=== PATIENT | male | born 1970 | race Two or more races ===

== ENCOUNTER 2019-01-07 16:55 | Inpatient (IN) | payer OTHER ==
[2019-01-07 17:41] VITALS: BMI 28.8
--- NOTE | 2019-01-07 19:07 | HP ---
CIWA Score Nausea/Vomitin Muscle Tremors: 2 Anxiety: 2 Agitation: 2 Paroxysmal Sweats: 1-Minimal Palms Moist Orientation: 0-Oriented Tacttile Disturbances: 1-Very Mild Itch/Numbness Auditory Disturbances: 1-Very Mild Visual Disturbances: 0-None Headache: 2-Mild CIWA-Ar Total Score: 13 - Admission Criteria OASAS Guidelines: Admission for Medically Managed Detox: Requires at least one of the followin. CIWA greater than 12 2. Seizures within the past 24 hours 3. Delirium tremens within the past 24 hours 4. Hallucinations within the past 24 hours 5. Acute intervention needed for co occurring medical disorder 6. Acute intervention needed for co occurring psychiatric disorder 7. Severe withdrawal that cannot be handled at a lower level of care (continued vomiting, continued diarrhea, abnormal vital signs) requiring intravenous medication and/or fluids 8. Admission ROS S - HPI Chief Complaint: i need help to stop drinking alcohol Allergies/Adverse Reactions: Allergies Allergy/AdvReac Type Severity Reaction Status Date / Time No Known Allergies Allergy Verified 01/07/19 17:30 History of Present Illness: this 48 years old male with alcohol dependence,seeking detox,withdrawal symptom, seizure withdrawal in 2018 seen in [facility] seen in [facility] this morning,for chest pain,receiving librium this morning history of hypertension and hypercholesterolemia,no medications for 2 years no significant period of sobriety plan for out patient program after detox Exam Limitations: No Limitations - Ebola screening Have you traveled outside of the country in the last 21 days: No (N) Have you had contact with anyone from an Ebola affected area: No Do you have a fever: No - Review of Systems Constitutional: Loss of Appetite, Malaise, Night Sweats, Changes in sleep, Weakness EENT: reports: Tearing, Nose Congestion Respiratory: reports: No Symptoms reported Cardiac: reports: No Symptoms Reported GI: reports: Diarrhea, Nausea, Poor Appetite, Abdominal cramping : reports: No Symptoms Reported Integumentary: reports: Dryness Neuro: reports: Headache, Tremors Endocrine: reports: No Symptoms Reported Hematology: reports: No Symptoms Reported Psychiatric: reports: No Sypmtoms Reported, Judgement Intact, Mood/Affect Appropiate, Orientated x3 Other Systems: Reviewed and Negative Patient History - Patient Medical History Hx Anemia: No Hx Asthma: No Hx Chronic Obstructive Pulmonary Disease (COPD): No Hx Cancer: No Hx Cardiac Disorders: No Hx Congestive Heart Failure: No Hx Hypertension: Yes (no med) Hx Hypercholesterolemia: Yes (no med) Hx Pacemaker: No HX Cerebrovascular Accident: No Hx Seizures: Yes (last 2017 withdrawal seizure) Hx Dementia: No Hx Diabetes: No Hx Gastrointestinal Disorders: No Hx Liver Disease: No Hx Genitourinary Disorders: No Hx Sexually Transmitted Disorders: No Hx Renal Disease (ESRD): No Hx Thyroid Disease: No Hx Human Immunodeficiency Virus (HIV): No (last 12/20 negative) Hx Hepatitis C: No Hx Depression: Yes (no med) Hx Suicide Attempt: No Hx Bipolar Disorder: No Hx Schizophrenia: No Other Medical History: no suicidal,no homicidal - Patient Surgical History Past Surgical History: No Hx Neurologic Surgery: No Hx Cataract Extraction: No Hx Cardiac Surgery: No Hx Lung Surgery: No Hx Breast Surgery: No Hx Breast Biopsy: No Hx Abdominal Surgery: No Hx Appendectomy: No Hx Cholecystectomy: No Hx Genitourinary Surgery: No Hx Section: No Hx Orthopedic Surgery: No Anesthesia Reaction: No - PPD History Previous Implant?: Yes Documented Results: Negative w/o proof Implanted On Prior [facility] Admission?: No PPD to be Administered?: No - Smoking Cessation Smoking history: Never smoked Have you smoked in the past 12 months: No Hx Chewing Tobacco Use: No Initiated information on smoking cessation: No - Substance & Tx. History Hx Alcohol Use: Yes Hx Substance Use: No Substance Use Type: Alcohol Hx Substance Use Treatment: No - Substances abused Alcohol Substance route: Oral Frequency: Daily Amount used: 1 to 2 pints of vodka. Age of first use: 22 Date of last use: 01/06/19 Family Disease History - Family Disease History Family History: Denies Admission Physical Exam S - Vital Signs Vital Signs: Vital Signs - 24 hr 01/07/19 17:33 Temperature 97.4 F L Pulse Rate 77 Respiratory 18 Rate Blood Pressure 136/98 - Physical General Appearance: Yes: Moderate Distress, Tremorous, Irritable, Sweating, Anxious HEENTM: Yes: Normocephalic, DAVIDA, Pharynx Normal Respiratory: Yes: Within Normal Limits, Lungs Clear, Normal Breath Sounds, No Respiratory Distress Neck: Yes: Within Normal Limits, Supple, Trachea in good position Breast: Yes: Within Normal Limits Cardiology: Yes: Within Normal Limits, Regular Rhythm, Regular Rate, S1, S2 Abdominal: Yes: Within Normal Limits, Normal Bowel Sounds, Non Tender, Soft Genitourinary: Yes: Within Normal Limits Back: Yes: Muscle Spasm Musculoskeletal: Yes: Back pain, Muscle Pain Extremities: Yes: Within Normal Limits, Normal Range of Motion, Tremors Neurological: Yes: Within Normal Limits, social media executive II-XII NML intact, Alert, Motor Strength 5/5 Integumentary: Yes: Dry Lymphatic: Yes: Within Normal Limits - Diagnostic (1) Alcohol dependence with uncomplicated withdrawal Current Visit: Yes Status: Acute (2) Alcohol related seizure Current Visit: Yes Status: Acute (3) Syncope Current Visit: Yes Status: Acute (4) Hypertension Current Visit: Yes Status: Acute (5) Hypercholesterolemia Current Visit: Yes Status: Acute Cleared for Admission S - Detox or Rehab [facility] Level of Care: Medically Managed Detox Regimen/Protocol: Librium Breathalyzer - Breathalyzer Breathalyzer: 0 Urine Drug Screen - Test Device Lot number: [id number] Expiration date: 10/31/20 - Control Is test valid?: Yes - Results Drug screen NEGATIVE: No Urine drug screen results: BZO-Benzodiazepines Inpatient Rehab Admission - Rehab Decision to Admit Inpatient rehab admission?: No
[2019-01-07] MEDS ORDERED: MAG HYDROX/AL HYDROX/SIMETH 30 ML UNIT-DOSE CUP PO PRN (19:17)
[2019-01-07] MEDS ORDERED: MENTHOL/PHENOL 1 EACH UD MM PRN (19:17)
[2019-01-07] MEDS ORDERED: IBUPROFEN 400 MG TABLET (FP) PO PRN (19:17)
[2019-01-07] MEDS ORDERED: METHOCARBAMOL 500 MG TABLET PO PRN (19:17)
[2019-01-07] MEDS ORDERED: MAGNESIUM HYDROX 2400MG/30ML ORAL SUSPENSION 30 ML CUP PO PRN (19:17)
[2019-01-07] MEDS ORDERED: MAGNESIUM CITRATE 300 ML BOTTLE PO PRN (19:17)
[2019-01-07] MEDS ORDERED: BISMUTH SUBSALICYLATE 524 MG/30 ML UD PO PRN (19:17)
[2019-01-07] MEDS ORDERED: ACETAMINOPHEN 325 MG TABLET (FP) PO PRN ×2 (19:17)
[2019-01-07] MEDS ORDERED: hydrOXYzine PAMOATE 25 MG CAPSULE (FP) PO PRN (19:17)
[2019-01-07] MEDS ORDERED: chlordiazePOXIDE HCL 25 MG CAPSULE PO PRN (19:17)
[2019-01-07] MEDS: chlordiazePOXIDE HCL 25 MG CAPSULE PO SCH (22:05)
[2019-01-07] MEDS: THIAMINE HCL 100 MG TABLET (FP) PO SCH (22:05)
[2019-01-08] MEDS: chlordiazePOXIDE HCL 25 MG CAPSULE PO SCH ×4 (05:32→22:24)
[2019-01-08 10:00] LABS: ALBUMIN 3.8 g/dl (3.4-5.0); BILIRUBIN,TOTAL 0.3 mg/dL (0.2-1); BLOOD UREA NITROGEN 13.3 mg/dL (7-18); CALCIUM 8.7 mg/dL (8.5-10.1); CREATININE 0.8 mg/dL (0.55-1.3); TOT PROT 7.2 g/dl (6.4-8.2)
--- NOTE | 2019-01-08 10:05 | PN ---
[facility] CIWA - CIWA Score Nausea/Vomitin-Mild Nausea/No Vomiting Muscle Tremors: 3 Anxiety: 2 Agitation: 3 Paroxysmal Sweats: 1-Minimal Palms Moist Orientation: 1-Uncertain about Date Tacttile Disturbances: 1-Very Mild Itch/Numbness Auditory Disturbances: 0-None Visual Disturbances: 0-None Headache: 0-None Present CIWA-Ar Total Score: 12 BHS Progress Note (SOAP) Subjective: first alcohol detox at [facility] doing well with librium detox protocol tremor restlessness mild headaches Objective: 01/08/19 10:06 Vital Signs Temperature 96.9 F L 01/08/19 09:07 Pulse Rate 86 01/08/19 09:07 Respiratory Rate 18 01/08/19 09:07 Blood Pressure 132/90 01/08/19 09:07 O2 Sat by Pulse Oximetry (%) Laboratory Last Values Sodium 137 mmol/L (136-145) 01/08/19 08:00 Potassium 4.0 mmol/L (3.5-5.1) 01/08/19 08:00 Chloride 104 mmol/L (98-107) 01/08/19 08:00 Carbon Dioxide 27 mmol/L (21-32) 01/08/19 08:00 Anion Gap 6 MMOL/L (8-16) L 01/08/19 08:00 BUN 13.3 mg/dL (7-18) 01/08/19 08:00 Creatinine 0.8 mg/dL (0.55-1.3) 01/08/19 08:00 Est GFR (CKD-EPI)AfAm 124.16 01/08/19 08:00 Est GFR (CKD-EPI)NonAf 107.13 01/08/19 08:00 Random Glucose 105 mg/dL (74-106) 01/08/19 08:00 Calcium 8.7 mg/dL (8.5-10.1) 01/08/19 08:00 Total Bilirubin 0.3 mg/dL (0.2-1) 01/08/19 08:00 AST 23 U/L (15-37) 01/08/19 08:00 ALT 34 U/L (13-61) 01/08/19 08:00 Alkaline Phosphatase 60 U/L (45-117) 01/08/19 08:00 Total Protein 7.2 g/dl (6.4-8.2) 01/08/19 08:00 Albumin 3.8 g/dl (3.4-5.0) 01/08/19 08:00 lab noted history of hypertension 01/08/19 10:07 treated with amlopidine 5 mg po daily 01/08/19 10:08 hold while on librium detox regimen Assessment: 01/08/19 10:09 alcohol withdrawal sx Plan: continue alcohol detox
[2019-01-08 10:08] LABS: HEMATOCRIT 38.8 % (35.4-49); HEMOGLOBIN 13.2 GM/dL (11.7-16.9); MCH 32.3 pg (25.7-33.7); MCHC 34.1 g/dl (32.0-35.9); MEAN CELL VOLUME 94.7 fl (80-96); MEAN PLT VOLUME 9.1 fl (7.5-11.1); PLATELET COUNT 160 K/MM3 (134-434); RBC 4.09 M/mm3 (4.00-5.60); RDW 12.7 % (11.9-15.9); WHITE BLOOD COUNT 6.5 K/mm3 (4.0-10.0)
[2019-01-08] MEDS: PRENATAL VITAMINS W/ FOLIC ACID TABLET (FP) PO SCH (10:16)
--- NOTE | 2019-01-08 11:46 | EKG ---
Test Reason : Blood Pressure : / mmHG Vent. Rate : 061 BPM Atrial Rate : 061 BPM P-R Int : 156 ms QRS Dur : 102 ms QT Int : 416 ms P-R-T Axes : 024 000 010 degrees QTc Int : 418 ms NORMAL SINUS RHYTHM VOLTAGE CRITERIA FOR LEFT VENTRICULAR HYPERTROPHY NONSPECIFIC T WAVE ABNORMALITY ABNORMAL ECG NO PREVIOUS ECGS AVAILABLE Confirmed by REINALDO MCGINNIS MD ([id number]) on 01/08/2019 11:45:43 AM Referred By: Emely Hooks Confirmed By:REINALDO MCGINNIS MD
[2019-01-08] MEDS: LIDOCAINE 5% TOPICAL PATCH TP SCH (14:26)
[2019-01-08] MEDS: MELATONIN 5 MG TABLETS PO PRN (22:24)
[2019-01-08] MEDS: LIDOCAINE PATCH REMOVAL MC SCH (22:24)
[2019-01-08] MEDS: THIAMINE HCL 100 MG TABLET (FP) PO SCH (22:24)
[2019-01-09] MEDS: chlordiazePOXIDE HCL 25 MG CAPSULE PO SCH ×4 (06:08→22:19)
[2019-01-09] MEDS: PRENATAL VITAMINS W/ FOLIC ACID TABLET (FP) PO SCH (10:14)
[2019-01-09] MEDS: LIDOCAINE 5% TOPICAL PATCH TP SCH (10:16)
--- NOTE | 2019-01-09 14:11 | PN ---
[facility] CIWA - CIWA Score Nausea/Vomitin-Mild Nausea/No Vomiting Muscle Tremors: 2 Anxiety: 2 Agitation: 2 Paroxysmal Sweats: 1-Minimal Palms Moist Orientation: 1-Uncertain about Date Tacttile Disturbances: 1-Very Mild Itch/Numbness Auditory Disturbances: 0-None Visual Disturbances: 0-None Headache: 1-Very Mild CIWA-Ar Total Score: 11 S Progress Note (SOAP) Subjective: patient is worry about his cholesterol serum level understanding that healthy eating pattern may help him maintain sober "I have four daughters" patient is determined to maintain sober for his children and his career Objective: 01/09/19 14:11 Vital Signs Temperature 98.4 F 01/09/19 13:08 Pulse Rate 78 01/09/19 13:08 Respiratory Rate 16 01/09/19 13:08 Blood Pressure 125/88 01/09/19 13:08 O2 Sat by Pulse Oximetry (%) Laboratory Last Values WBC 6.5 K/mm3 (4.0-10.0) 01/08/19 08:00 RBC 4.09 M/mm3 (4.00-5.60) 01/08/19 08:00 Hgb 13.2 GM/dL (11.7-16.9) 01/08/19 08:00 Hct 38.8 % (35.4-49) 01/08/19 08:00 MCV 94.7 fl (80-96) 01/08/19 08:00 MCH 32.3 pg (25.7-33.7) 01/08/19 08:00 MCHC 34.1 g/dl (32.0-35.9) 01/08/19 08:00 RDW 12.7 % (11.9-15.9) 01/08/19 08:00 Plt Count 160 K/MM3 (134-434) 01/08/19 08:00 MPV 9.1 fl (7.5-11.1) 01/08/19 08:00 Sodium 137 mmol/L (136-145) 01/08/19 08:00 Potassium 4.0 mmol/L (3.5-5.1) 01/08/19 08:00 Chloride 104 mmol/L (98-107) 01/08/19 08:00 Carbon Dioxide 27 mmol/L (21-32) 01/08/19 08:00 Anion Gap 6 MMOL/L (8-16) L 01/08/19 08:00 BUN 13.3 mg/dL (7-18) 01/08/19 08:00 Creatinine 0.8 mg/dL (0.55-1.3) 01/08/19 08:00 Est GFR (CKD-EPI)AfAm 124.16 01/08/19 08:00 Est GFR (CKD-EPI)NonAf 107.13 01/08/19 08:00 Random Glucose 105 mg/dL (74-106) 01/08/19 08:00 Calcium 8.7 mg/dL (8.5-10.1) 01/08/19 08:00 Total Bilirubin 0.3 mg/dL (0.2-1) 01/08/19 08:00 AST 23 U/L (15-37) 01/08/19 08:00 ALT 34 U/L (13-61) 01/08/19 08:00 Alkaline Phosphatase 60 U/L (45-117) 01/08/19 08:00 Total Protein 7.2 g/dl (6.4-8.2) 01/08/19 08:00 Albumin 3.8 g/dl (3.4-5.0) 01/08/19 08:00 RPR Titer Nonreactive (NONREACTIVE) 01/08/19 08:00 lab noted Assessment: 01/09/19 14:11 alcohol withdrawal sx Plan: continue alcohol detox
[2019-01-09] MEDS: THIAMINE HCL 100 MG TABLET (FP) PO SCH (22:19)
[2019-01-09] MEDS: MELATONIN 5 MG TABLETS PO PRN (22:19)
[2019-01-09] MEDS: LIDOCAINE PATCH REMOVAL MC SCH (22:19)
[2019-01-10] MEDS ORDERED: chlordiazePOXIDE HCL 10 MG CAPSULE PO PRN
[2019-01-10] MEDS: chlordiazePOXIDE HCL 10 MG CAPSULE PO SCH ×4 (05:32→22:10)
[2019-01-10] MEDS: PRENATAL VITAMINS W/ FOLIC ACID TABLET (FP) PO SCH (10:09)
[2019-01-10] MEDS: LIDOCAINE 5% TOPICAL PATCH TP SCH (10:10)
[2019-01-10 10:26] LABS: CHOLESTEROL 204 mg/dL (50-200); HDL CHOLESTEROL 65 mg/dL (40-60); TRIGLYCERIDES 130 mg/dL (0-150)
--- NOTE | 2019-01-10 13:03 | PN ---
[facility] CIWA - CIWA Score Nausea/Vomitin-Mild Nausea/No Vomiting Muscle Tremors: 2 Anxiety: 3 Agitation: 2 Paroxysmal Sweats: 1-Minimal Palms Moist Orientation: 0-Oriented Tacttile Disturbances: 1-Very Mild Itch/Numbness Auditory Disturbances: 0-None Visual Disturbances: 0-None Headache: 0-None Present CIWA-Ar Total Score: 10 BHS Progress Note (SOAP) Subjective: report that the differences of hospital food and home food discuss lipid panel result patient prefers to exercise daily to reduce lipid level feeling good today less tremor no headache Objective: 01/10/19 13:03 Vital Signs Temperature 97.0 F L 01/10/19 09:16 Pulse Rate 83 01/10/19 09:16 Respiratory Rate 18 01/10/19 09:16 Blood Pressure 120/80 01/10/19 09:16 O2 Sat by Pulse Oximetry (%) Laboratory Last Values WBC 6.5 K/mm3 (4.0-10.0) 01/08/19 08:00 RBC 4.09 M/mm3 (4.00-5.60) 01/08/19 08:00 Hgb 13.2 GM/dL (11.7-16.9) 01/08/19 08:00 Hct 38.8 % (35.4-49) 01/08/19 08:00 MCV 94.7 fl (80-96) 01/08/19 08:00 MCH 32.3 pg (25.7-33.7) 01/08/19 08:00 MCHC 34.1 g/dl (32.0-35.9) 01/08/19 08:00 RDW 12.7 % (11.9-15.9) 01/08/19 08:00 Plt Count 160 K/MM3 (134-434) 01/08/19 08:00 MPV 9.1 fl (7.5-11.1) 01/08/19 08:00 Sodium 137 mmol/L (136-145) 01/08/19 08:00 Potassium 4.0 mmol/L (3.5-5.1) 01/08/19 08:00 Chloride 104 mmol/L (98-107) 01/08/19 08:00 Carbon Dioxide 27 mmol/L (21-32) 01/08/19 08:00 Anion Gap 6 MMOL/L (8-16) L 01/08/19 08:00 BUN 13.3 mg/dL (7-18) 01/08/19 08:00 Creatinine 0.8 mg/dL (0.55-1.3) 01/08/19 08:00 Est GFR (CKD-EPI)AfAm 124.16 01/08/19 08:00 Est GFR (CKD-EPI)NonAf 107.13 01/08/19 08:00 Random Glucose 105 mg/dL (74-106) 01/08/19 08:00 Calcium 8.7 mg/dL (8.5-10.1) 01/08/19 08:00 Total Bilirubin 0.3 mg/dL (0.2-1) 01/08/19 08:00 AST 23 U/L (15-37) 01/08/19 08:00 ALT 34 U/L (13-61) 01/08/19 08:00 Alkaline Phosphatase 60 U/L (45-117) 01/08/19 08:00 Total Protein 7.2 g/dl (6.4-8.2) 01/08/19 08:00 Albumin 3.8 g/dl (3.4-5.0) 01/08/19 08:00 Triglycerides 130 mg/dL (0-150) 01/10/19 07:50 Cholesterol 204 mg/dL (50-200) H 01/10/19 07:50 Total LDL Cholesterol 125 mg/dL (5-100) H 01/10/19 07:50 HDL Cholesterol 65 mg/dL (40-60) H 01/10/19 07:50 RPR Titer Nonreactive (NONREACTIVE) 01/08/19 08:00 lab result informed and discussed with the patient lab noted Assessment: 01/10/19 13:03 alcohol withdrawal sx Plan: continue alcohol detox
[2019-01-10] MEDS: MELATONIN 5 MG TABLETS PO PRN (22:10)
[2019-01-10] MEDS: THIAMINE HCL 100 MG TABLET (FP) PO SCH (22:10)
[2019-01-10] MEDS: LIDOCAINE PATCH REMOVAL MC SCH (22:11)
[2019-01-11] MEDS: chlordiazePOXIDE HCL 10 MG CAPSULE PO SCH ×2 (05:02→17:06)
[2019-01-11] MEDS: LIDOCAINE 5% TOPICAL PATCH TP SCH (10:24)
[2019-01-11] MEDS: PRENATAL VITAMINS W/ FOLIC ACID TABLET (FP) PO SCH (10:25)
--- NOTE | 2019-01-11 15:31 | PN ---
[facility] CIWA - CIWA Score Nausea/Vomitin-No Nausea/No Vomiting Muscle Tremors: 2 Anxiety: 2 Agitation: 2 Paroxysmal Sweats: No Perspiration Orientation: 0-Oriented Tacttile Disturbances: 0-None Auditory Disturbances: 0-None Visual Disturbances: 0-None Headache: 0-None Present CIWA-Ar Total Score: 6 BHS Progress Note (SOAP) Subjective: 48 years old male admitted on 01/07/19 for alcohol withdrawal sx has medial history of hypertension and hyperlipidemia doing well with librium detox regimen feeling better today prefers to return home with family and return to work and follow up with primary care provider for lipid monitoring Objective: 01/11/19 15:35 Vital Signs Temperature 98.5 F 01/11/19 13:18 Pulse Rate 76 01/11/19 13:18 Respiratory Rate 18 01/11/19 13:18 Blood Pressure 118/83 01/11/19 13:18 O2 Sat by Pulse Oximetry (%) Laboratory Last Values WBC 6.5 K/mm3 (4.0-10.0) 01/08/19 08:00 RBC 4.09 M/mm3 (4.00-5.60) 01/08/19 08:00 Hgb 13.2 GM/dL (11.7-16.9) 01/08/19 08:00 Hct 38.8 % (35.4-49) 01/08/19 08:00 MCV 94.7 fl (80-96) 01/08/19 08:00 MCH 32.3 pg (25.7-33.7) 01/08/19 08:00 MCHC 34.1 g/dl (32.0-35.9) 01/08/19 08:00 RDW 12.7 % (11.9-15.9) 01/08/19 08:00 Plt Count 160 K/MM3 (134-434) 01/08/19 08:00 MPV 9.1 fl (7.5-11.1) 01/08/19 08:00 Sodium 137 mmol/L (136-145) 01/08/19 08:00 Potassium 4.0 mmol/L (3.5-5.1) 01/08/19 08:00 Chloride 104 mmol/L (98-107) 01/08/19 08:00 Carbon Dioxide 27 mmol/L (21-32) 01/08/19 08:00 Anion Gap 6 MMOL/L (8-16) L 01/08/19 08:00 BUN 13.3 mg/dL (7-18) 01/08/19 08:00 Creatinine 0.8 mg/dL (0.55-1.3) 01/08/19 08:00 Est GFR (CKD-EPI)AfAm 124.16 01/08/19 08:00 Est GFR (CKD-EPI)NonAf 107.13 01/08/19 08:00 Random Glucose 105 mg/dL (74-106) 01/08/19 08:00 Calcium 8.7 mg/dL (8.5-10.1) 01/08/19 08:00 Total Bilirubin 0.3 mg/dL (0.2-1) 01/08/19 08:00 AST 23 U/L (15-37) 01/08/19 08:00 ALT 34 U/L (13-61) 01/08/19 08:00 Alkaline Phosphatase 60 U/L (45-117) 01/08/19 08:00 Total Protein 7.2 g/dl (6.4-8.2) 01/08/19 08:00 Albumin 3.8 g/dl (3.4-5.0) 01/08/19 08:00 Triglycerides 130 mg/dL (0-150) 01/10/19 07:50 Cholesterol 204 mg/dL (50-200) H 01/10/19 07:50 Total LDL Cholesterol 125 mg/dL (5-100) H 01/10/19 07:50 HDL Cholesterol 65 mg/dL (40-60) H 01/10/19 07:50 RPR Titer Nonreactive (NONREACTIVE) 01/08/19 08:00 lab noted Assessment: 01/11/19 15:35 alcohol withdrawal sx Plan: continue alcohol detox
[2019-01-11] MEDS: MELATONIN 5 MG TABLETS PO PRN (22:09)
[2019-01-11] MEDS: LIDOCAINE PATCH REMOVAL MC SCH (22:09)
[2019-01-11] MEDS: THIAMINE HCL 100 MG TABLET (FP) PO SCH (22:09)
[2019-01-12] MEDS ORDERED: chlordiazePOXIDE HCL 10 MG CAPSULE PO ONE (05:00)
[2019-01-12 06:35] VITALS: BP 106/84; PULSE 98; TEMP 97.4
--- NOTE | 2019-01-12 17:05 | DS ---
[facility] Detox Discharge Summary Admission Date: 01/07/19 Discharge Date: 01/12/19 - History Present History: Alcohol Dependence Additional Comments: PATIENT LEFT DETOX UNIT EARLY IN AM PRIOR TO TIME OF ARRIVAL OF MANAGER OF INVESTIGATIONS ONTO DETOX UNIT. PRE-DISCHARGE MEDICAL ASSESSMENT UNABLE TO BE DONE. PER [employer] Kyle BOOGIE, PATIENT REFERRED TO '[facility] ([place], [place]) FOR AFTERCARE. Pertinent Past History: History Of Seizures, Depression, HTN, Hypercholesterolemia, History Of Syncope. - Physical Exam Results Vital Signs: Vital Signs Temperature 97.4 F L 01/12/19 06:00 Pulse Rate 98 H 01/12/19 06:00 Respiratory Rate 18 01/12/19 06:00 Blood Pressure 106/84 01/12/19 06:00 O2 Sat by Pulse Oximetry (%) Pertinent Admission Physical Exam Findings: WITHDRAWAL SYMPTOMS. Laboratory Tests 01/08/19 01/08/19 01/08/19 08:00 08:00 08:00 WBC 6.5 RBC 4.09 Hgb 13.2 Hct 38.8 MCV 94.7 MCH 32.3 MCHC 34.1 RDW 12.7 Plt Count 160 MPV 9.1 Sodium 137 Potassium 4.0 Chloride 104 Carbon Dioxide 27 Anion Gap 6 L BUN 13.3 Creatinine 0.8 Est GFR (CKD-EPI)AfAm 124.16 Est GFR (CKD-EPI)NonAf 107.13 Random Glucose 105 Calcium 8.7 Total Bilirubin 0.3 AST 23 ALT 34 Alkaline Phosphatase 60 Total Protein 7.2 Albumin 3.8 Triglycerides Cholesterol Total LDL Cholesterol HDL Cholesterol RPR Titer Nonreactive 01/10/19 07:50 WBC RBC Hgb Hct MCV MCH MCHC RDW Plt Count MPV Sodium Potassium Chloride Carbon Dioxide Anion Gap BUN Creatinine Est GFR (CKD-EPI)AfAm Est GFR (CKD-EPI)NonAf Random Glucose Calcium Total Bilirubin AST ALT Alkaline Phosphatase Total Protein Albumin Triglycerides 130 Cholesterol 204 H Total LDL Cholesterol 125 H HDL Cholesterol 65 H RPR Titer LABS NOTED. - Treatment Hospital Course: Detox Protocol Followed, Detoxed Safely, Responded well, Discharged Condition Good Patient has Accepted a Rehab Referral to: PT. REFERRED [facility] [place]. - Medication Discharge Medications: Ambulatory Orders Amlodipine Besylate [Norvasc -] 25 mg PO DAILY 01/07/19 Thiamine Mononitrate (Vit B1) 1 tablet PO DAILY 01/07/19 - Diagnosis (1) Alcohol dependence with uncomplicated withdrawal Status: Acute (2) Alcohol related seizure Status: Acute (3) Hypercholesterolemia Status: Acute (4) Hypertension Status: Acute Qualifiers: Hypertension type: unspecified Qualified Code(s): I10 - Essential (primary ) hypertension (5) Syncope Status: Acute Qualifiers: Syncope type: unspecified Qualified Code(s): R55 - Syncope and collapse - AMA Did Patient Leave Against Medical Advice: No
== END 2019-01-12 08:55 | disposition home or self-care (01) | DRG 775 ==
LOC: YASAS 16:55 → Y3N 19:06
PROVIDERS: ADMIT Surgery; ATTEND Surgery
PROC: HZ2ZZZZ Detoxification Services for Substance Abuse Treatment (ICD-10-PCS; principal; 2019-01-07)
DX: F10.230 Alcohol dependence with withdrawal, uncomplicated (principal); I10 Essential (primary) hypertension; E78.00 Pure hypercholesterolemia, unspecified; Z86.69 Personal history of other diseases of the nervous system and sense organs
CPT/HCPCS: 36415; 80053; 80061; 83721; 85027; 86593; 93005; 93010